=== PATIENT | female | born 1995 | race Caucasian/White ===

== ENCOUNTER 2023-05-12 18:05 | Inpatient (IN) | payer BC ==
[2023-05-12] MEDS ORDERED: Ondansetron PF 4 MG/2 ML Vial IVP PRN (18:18)
[2023-05-12] MEDS ORDERED: Ibuprofen 800 MG TAB PO PRN (18:18)
[2023-05-12] MEDS ORDERED: Acetaminophen 500 MG TAB PO PRN (18:18)
[2023-05-12] MEDS ORDERED: Lidocaine 1% (PF) 30 ML VIAL SC PRN (18:18)
[2023-05-12] MEDS ORDERED: hydrALAZINE 20 MG/ML VIAL SLOW IVP PRN (18:18)
[2023-05-12] MEDS ORDERED: Diphenoxylate HCl/Atropine Tablet PO PRN (18:18)
[2023-05-12] MEDS ORDERED: Methylergonovine 0.2 MG/ML VIAL IM PRN (18:18)
[2023-05-12] MEDS ORDERED: HYDROcodone/Acetaminophen 5/325 mg Tablet PO PRN (18:18)
[2023-05-12] MEDS ORDERED: Carboprost 250 MCG/ML AMP IM PRN (18:18)
[2023-05-12] MEDS ORDERED: Promethazine HCl 25 MG/ML VIAL IM PRN (18:18)
[2023-05-12] MEDS ORDERED: Misoprostol 200 MCG TAB PR PRN (18:18)
[2023-05-12] MEDS ORDERED: fentaNYL 50 mcg/mL 1 mL Vial SLOW IVP PRN (18:18)
[2023-05-12] MEDS ORDERED: Zolpidem Tartrate 5 MG TAB PO PRN (18:18)
[2023-05-12] MEDS ORDERED: NS w/ Oxytocin 30 units 500 ML IV SCH ×2 (18:30)
[2023-05-12 19:16] VITALS: BMI 39.5
[2023-05-12 19:59] LABS: Hemoglobin 10.3 g/dL (12.0-15.5); Mean Corpuscular HGB CONC 32.4 g/dL (32.0-36.0); Mean Corpuscular Hemoglobin 27.8 pg (27.0-33.0); Mean Corpuscular Volume 85.7 fl (81.6-98.3); Mean Platelet Volume 12.6 fl (7.4-10.4); Platelet Count 163 10x3/uL (150-450); RBC Distribution Width 13.6 % (11.5-14.5); Red Blood Cell (RBC) Count 3.71 10x6/uL (3.90-5.03); White Blood Cell (WBC) Count 11.1 10x3/uL (3.5-10.5)
[2023-05-12] MEDS: Misoprostol 100 MCG TAB VAG SCH ×2 (20:02→23:23)
[2023-05-12 20:13] LABS: ALT (SGPT) 19 U/L (8-55); AST (SGOT) 17 U/L (5-34); Albumin 3.2 g/dL (3.5-5.0); Alkaline Phosphatase 145 U/L (40-110); Anion Gap 12 mmol/L (10-20); BUN (Urea Nitrogen) 9 mg/dL (7.0-18.7); Bilirubin, Total 0.2 mg/dL (0.2-1.2); Calc. Creatinine Clearance 212 mL/min (70-130); Calcium 8.8 mg/dL (7.8-10.44); Carbon Dioxide 21 mmol/L (22-29); Chloride 109 mmol/L (98-107); Estimated GFR 113; Globulin 2.6 g/dL (2.4-3.5); Glucose 105 mg/dL (70-105); Potassium 3.7 mmol/L (3.5-5.1); Protein, Total 5.8 g/dL (6.0-8.3); Sodium 138 mmol/L (136-145)
[2023-05-12 20:31] LABS: HBSAg Index 0.16 S/CO (0-0.99); Hep B Surf Ag - L&D Non-Reactive S/CO (NonReactive); Syphilis Antibody Nonreactive (Nonreactive); Syphilis Antibody Index 0.06 S/CO (<1.00 Non-Reactive)
[2023-05-13] MEDS: Misoprostol 100 MCG TAB VAG SCH ×3 (03:31→09:45)
[2023-05-13] MEDS: Lactated Ringer's 1,000 ML IV SCH ×3 (07:06→14:10)
[2023-05-13] MEDS ORDERED: fentaNYL/Ropivacaine Epidural 100 ML ONE ×2 (12:03→19:01)
[2023-05-13] MEDS ORDERED: Promethazine HCl 25 MG/ML VIAL IM PRN (19:01)
[2023-05-13] MEDS ORDERED: Naloxone HCl 0.4 mg/ml Vial IVP PRN ×2 (19:01)
[2023-05-13] MEDS ORDERED: Moisturizing Cream (Eucerin) 113 GM JAR TOP PRN (19:01)
[2023-05-13] MEDS ORDERED: Acetaminophen 325 MG TAB PO PRN (19:01)
[2023-05-13] MEDS ORDERED: diphenhydrAMINE 50 MG/ML VIAL IVP PRN (19:01)
[2023-05-13] MEDS ORDERED: Lactated Ringer's 500 ML IV PRN (19:01)
[2023-05-13] MEDS ORDERED: ePHEDrine Sulfate 50 MG/10 ML VIAL SLOW IVP PRN (19:01)
[2023-05-13] MEDS ORDERED: Ondansetron PF 4 MG/2 ML Vial IVP PRN (19:01)
[2023-05-13] MEDS ORDERED: Communication Order-Pharmacy FS SCH (19:15)
[2023-05-14] MEDS: fentaNYL 2 mcg/Ropivacaine 0.2% Epidural 100 ML CADD EPIDURAL SCH ×2 (01:31→07:37)
[2023-05-14] MEDS ORDERED: fentaNYL 50 mcg/mL 1 mL Vial ONE (04:31)
[2023-05-14] MEDS ORDERED: Misoprostol 200 MCG TAB ONE (08:45)
[2023-05-14] MEDS ORDERED: Methylergonovine 0.2 MG/ML VIAL ONE (08:45)
[2023-05-14] MEDS ORDERED: Carboprost 250 MCG/ML AMP ONE (08:45)
[2023-05-14] MEDS ORDERED: Lidocaine 1% (PF) 30 ML VIAL ONE (08:46)
[2023-05-14] MEDS ORDERED: Boostrix 0.5 ML (Tdap) VIAL (>/=7 yrs of age) IM ONE (12:32)
[2023-05-14] MEDS ORDERED: hydrALAZINE 20 MG/ML VIAL SLOW IVP PRN (12:32)
[2023-05-14] MEDS ORDERED: diphenhydrAMINE 25 MG CAP PO PRN (12:32)
[2023-05-14] MEDS ORDERED: Bisacodyl 10 MG SUPP PR PRN (12:32)
[2023-05-14] MEDS ORDERED: Promethazine HCl 25 MG/ML VIAL IM PRN (12:32)
[2023-05-14] MEDS ORDERED: Ondansetron PF 4 MG/2 ML Vial IVP PRN (12:32)
[2023-05-14] MEDS ORDERED: Preparation H Ointment 28 GM TUBE PR PRN (12:32)
[2023-05-14] MEDS ORDERED: HYDROcodone/Acetaminophen 5/325 mg Tablet PO PRN ×2 (12:32)
[2023-05-14] MEDS ORDERED: Benzocaine-Menthol 82.5 ML CAN TOP PRN (12:32)
[2023-05-14] MEDS ORDERED: Milk Of Magnesia 30 ML UDCUP PO PRN (12:32)
[2023-05-14] MEDS: Ibuprofen 800 MG TAB PO SCH ×2 (16:07→20:42)
[2023-05-14] MEDS: Ferrous Sulfate 325 MG TAB PO SCH (16:54)
[2023-05-14] MEDS: Misoprostol 100 MCG TAB VAG SCH ×3 (18:13→18:15)
[2023-05-14] MEDS: Lactated Ringer's 1,000 ML IV SCH ×2 (18:15→18:16)
[2023-05-14] MEDS: Docusate 100 MG CAP PO SCH (20:43)
[2023-05-15] MEDS: Ibuprofen 800 MG TAB PO SCH ×3 (06:25→21:17)
[2023-05-15] MEDS: Docusate 100 MG CAP PO SCH ×2 (09:20→21:17)
[2023-05-15] MEDS: Prenatal Vitamin 1 TAB PO SCH (09:20)
[2023-05-15] MEDS: Ferrous Sulfate 325 MG TAB PO SCH (16:51)
[2023-05-15] MEDS ORDERED: Bupivacaine 0.25% HCL 30 ML VIAL ONE (18:59)
[2023-05-16] MEDS: Ibuprofen 800 MG TAB PO SCH (05:57)
[2023-05-16] MEDS: Prenatal Vitamin 1 TAB PO SCH (07:50)
[2023-05-16] MEDS: Ferrous Sulfate 325 MG TAB PO SCH (07:50)
[2023-05-16] MEDS: Docusate 100 MG CAP PO SCH (07:50)
[2023-05-16 08:04] VITALS: BP 115/57; TEMP 98.4
== END 2023-05-16 10:30 | disposition home or self-care (01) | DRG 807 ==
LOC: CSHLD 18:05 → CSHPP 05-14 14:45
PROVIDERS: ADMIT Student in an Organized Health Care Education/Training Program; ATTEND Student in an Organized Health Care Education/Training Program
PROC: 10E0XZZ Delivery of Products of Conception, External Approach (ICD-10-PCS; principal; 2023-05-14)
PROC: 0KQM0ZZ Repair Perineum Muscle, Open Approach (ICD-10-PCS; 2023-05-14)
PROC: 0U7C7ZZ Dilation of Cervix, Via Natural or Artificial Opening (ICD-10-PCS; 2023-05-14)
DX: O13.4 Gestational [pregnancy-induced] hypertension without significant proteinuria, complicating childbirth (principal); Z37.0 Single live birth; Z3A.37 37 weeks gestation of pregnancy; O70.1 Second degree perineal laceration during delivery; O69.81X0 Labor and delivery complicated by cord around neck, without compression, not applicable or unspecified
CPT/HCPCS: 51702; 80053; 85027; 86780; 86850; 86900; 86901; 87340; J2590; J3010; J7120; S0020